=== PATIENT | male | born 1940 | race Caucasian/White ===

== ENCOUNTER → 2019-01-12 10:40 | Outpatient (CLI) | payer OTHER, SELFPAY ==
--- NOTE | 2019-01-12 11:12 | DI.CT.S_ITS ---
PROCEDURE: CT ABDOMEN W CON INDICATIONS: UNSPECIFIED ABD PAIN. The patient describes gastroesophageal reflux disease. TECHNIQUE: After the administration of oral and intravenous contrast, 5 mm thick sections acquired from the diaphragms to the iliac crests. 5 mm thick coronal and sagittal reformats were acquired. For radiation dose reduction, the following was used: automated exposure control, adjustment of mA and/or kV according to patient size. COMPARISON: [facility], US, ABDOMEN COMPLETE, 12/15/2014, 8:56. [facility], CR, ABDOMEN ACUTE SERIES, 12/14/2014, 20:26. [facility], CT, ABDOMEN/PELVIS WITH CONTRAST, 10/06/2012, 21:04. [facility], CT, ABDOMEN/PELVIS WITH CONTRAST, 12/14/2014, 22:22. FINDINGS: Image quality: Excellent. Lung bases: Lung bases are clear. Heart size is normal. Solid organs: Liver is normal in size and enhancement. Gallbladder has been removed. Biliary system is non dilated. Pancreas enhances normally. Spleen is normal in size and enhancement. Calcified granulomas are seen within the spleen. No adrenal nodules. 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 No hydronephrosis can be seen. Prominence of the right renal pelvis is again seen, which is stable compared to 2014. Peritoneum and bowel: Contrast enhanced bowel loops appear normal in caliber. No free fluid or air. Nodes and vessels: No retroperitoneal or mesenteric adenopathy by size criteria. Aorta and inferior vena cava are normal in size. Bones: No suspicious bony lesions. No vertebral body compression fractures. Mild dextroconvex scoliotic curvature is seen. Degenerative changes are seen, which are most prominent involving the lower lumbar spine. Miscellaneous: No ventral hernias. IMPRESSION: No imaging explanation is found for this patient's presenting history of abdominal pain and gastroesophageal reflux disease. 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 Incidental note is made of: Prior granulomatous exposure. Cholecystectomy Lumbar spine degenerative change Dextroconvex scoliotic curvature Dictated by: Guevara Kaur M.D. on 01/12/2019 at 13:02 Approved by: Guevara Kaur M.D. on 01/12/2019 at 13:05
== END ==
PROVIDERS: PCP Internal Medicine; Visit Provider Internal Medicine
DX: R10.9 Unspecified abdominal pain (principal); K21.9 Gastro-esophageal reflux disease without esophagitis; Q63.1 Lobulated, fused and horseshoe kidney; Z90.49 Acquired absence of other specified parts of digestive tract
CPT/HCPCS: 74160; Q9967

== ENCOUNTER → 2019-03-04 09:14 | Outpatient (CLI) | payer OTHER, SELFPAY ==
--- NOTE | 2019-03-04 | DI.RAD.S_ITS ---
PROCEDURE: XR CHEST 2V INDICATIONS: Dysphonia TECHNIQUE: 2 views of the chest were acquired. COMPARISON: [facility], , CHEST 2 VIEW, 09/09/2012, 17:14. FINDINGS: Surgical changes and devices: None. Lungs and pleura: Lungs are clear. No pleural effusions or pneumothorax. Mediastinum: Mediastinal contours are normal. Heart size is normal. Bones and chest wall: No suspicious bony abnormalities. Soft tissues appear unremarkable. IMPRESSION: Normal for age, source of current dysphonia symptoms is not seen. Dictated by: Doug Blackwell M.D. on 03/04/2019 at 11:27 Approved by: Doug Blackwell M.D. on 03/04/2019 at 11:31
[2019-03-04 11:09] LABS: BUN Creatinine Ratio 34.3 (6-22); Blood Urea Nitrogen 24 mg/dL (9-20); Calcium 8.9 mg/dL (8.4-10.2); Carbon Dioxide 29 mmol/L (22-32); Chloride 103 mmol/L (98-107); Estimated Glomerular Filt Rate > 60.0 mL/min (>60); Glucose 98 mg/dL (80-110); Sodium 140 mmol/L (137-145)
[2019-03-04 11:17] LABS: HEMOLYSIS 52 (0-50)
[2019-03-04 11:18] LABS: Potassium 4.9 mmol/L (3.4-5.1)
== END ==
PROVIDERS: PCP Internal Medicine; Visit Provider Internal Medicine
DX: R49.0 Dysphonia (principal)
CPT/HCPCS: 36415; 71046; 80048

== ENCOUNTER → 2019-07-15 13:57 | Outpatient (CLI) | payer OTHER, SELFPAY ==
--- NOTE | 2019-07-15 | DI.CT.S_ITS ---
PROCEDURE: CT CHEST W CON INDICATIONS: GERD TECHNIQUE: After the administration of intravenous contrast, 5 mm thick sections acquired from the pulmonary apices to the posterior costophrenic angles. 1 mm axial lung, 5 mm thick coronal and sagittal reformats and 7 mm axial MIP were acquired. For radiation dose reduction, the following was used: automated exposure control, adjustment of mA and/or kV according to patient size. COMPARISON: Lung bases on CT abdomen 01/12/2019. FINDINGS: Image quality: Excellent. Lungs and pleura: No acute air space opacities. A few small calcified granuloma. No pleural effusions or pneumothorax. Central and peripheral airways are patent and normal in caliber. Mediastinum: Heart size is normal. No pericardial effusion. No mediastinal or hilar adenopathy by size criteria. Calcified left hilar nodes. Thoracic aorta and central pulmonary arteries are normal in size. No central pulmonary embolism. Esophagus is normal in caliber. No hiatal hernia. Bones and chest wall: No suspicious bony lesions. No vertebral body compression fractures. No axillary or supraclavicular adenopathy by size criteria. Right hypodense thyroid nodule measuring 0.9 cm. Abdomen: Visualized upper abdominal solid organs appear normal. Upper abdominal bowel loops are normal in caliber. Small calcified splenic granuloma. Gallbladder surgically absent. IMPRESSION: 1. No acute airspace opacity. 2. Findings of prior granulomatous process. 3. No hiatal hernia demonstrated. Dictated by: Joe Coffman M.D. on 07/15/2019 at 15:57 Approved by: Joe Coffman M.D. on 07/15/2019 at 16:04
--- NOTE | 2019-07-15 14:28 | DI.CT.S_ITS ---
PROCEDURE: CT SOFT TISSUE NECK W CON INDICATIONS: GERD TECHNIQUE: After the administration of intravenous contrast, 3.0 mm axial sections acquired from the sella to the aortic arch. Additional oblique axial 3.0 mm sections acquired through the pharynx. 3 mm thick coronal and sagittal reformats were generated. For radiation dose reduction, the following was used: automated exposure control. COMPARISON: None. FINDINGS: Image quality: Excellent. Lymph nodes: No enlarged lymph nodes seen throughout the neck. Vessels: Visualized vasculature appears patent. Neck spaces: The oropharynx, nasopharynx, and pharynx demonstrate no mucosal lesions. The vocal cords, false vocal cords, pyriform sinuses, epiglottis, vallecula, and tongue base all appear normal. Extramucosal spaces appear unremarkable. Glands: The parotid and submandibular glands appear normal. Thyroid gland contains low attenuation 1 cm right sided nodule which could be better assessed with dedicated ultrasound. Miscellaneous: Visualized brain and orbits appear normal. Lung apices appear clear. Superficial soft tissues appear normal. Bones: No suspicious bony lesions. Cervical spondylosis and straightening of the normal lordotic curvature. Multilevel degenerative endplate sclerosis and spurring. Diffuse facet arthropathy. Minimal right maxillary sinus disease IMPRESSION: No lymphadenopathy identified. Right thyroid nodule, indeterminate. Recommend further assessment with dedicated ultrasound if not already performed. Dictated by: Hi Carcamo M.D. on 07/15/2019 at 16:45 Approved by: Hi Carcamo M.D. on 07/15/2019 at 16:50
[2019-07-15 14:32] LABS: BUN Creatinine Ratio 25.7 (6-22); Blood Urea Nitrogen 18 mg/dL (9-20); Calcium 9.2 mg/dL (8.4-10.2); Carbon Dioxide 29 mmol/L (22-32); Chloride 103 mmol/L (98-107); Estimated Glomerular Filt Rate > 60.0 mL/min (>60); Glucose 110 mg/dL (80-110); HEMOLYSIS < 15 (0-50); Potassium 4.3 mmol/L (3.4-5.1); Sodium 140 mmol/L (137-145)
== END ==
PROVIDERS: PCP Internal Medicine; Visit Provider Internal Medicine
DX: K21.9 Gastro-esophageal reflux disease without esophagitis (principal); M47.812 Spondylosis without myelopathy or radiculopathy, cervical region; E04.1 Nontoxic single thyroid nodule; R49.0 Dysphonia
CPT/HCPCS: 36415; 70491; 71260; 80048; Q9967

== ENCOUNTER → 2019-07-31 11:18 | Outpatient (CLI) | payer OTHER, SELFPAY ==
[2019-07-31 12:11] LABS: Add Manual Diff / Slide Review NO; Basophils Absolute Auto 0 /uL (0-100); Basophils Percent Auto 0.5 % (0-2); Eosinophils Absolute Auto 200 /uL (0-450); Eosinophils Percent Auto 2.8 % (2-4); Hematocrit 42.7 % (41-53); Hemoglobin 14.5 g/dL (13.5-17.5); Lymphocytes Absolute Auto 1700 /uL (1100-4500); Lymphocytes Percent Auto 30.3 % (25-40); Mean Corpuscular HGB Conc 33.9 % (30-36); Mean Corpuscular Hemoglobin 32.5 PG (26-34); Mean Corpuscular Volume 95.9 fL (80-100); Monocytes Absolute Auto 800 /uL (0-900); Monocytes Percent Auto 13.5 % (3-14); Neutrophils Absolute Auto 3000 /uL (1500-7000); Neutrophils Percent Auto 52.9 % (50-75); Platelet Count 237 X10^3/uL (150-400); Red Blood Cell Count 4.45 X10^6/uL (4.5-5.9); Red Cell Distribution Width 12.6 % (11.6-14.8); White Blood Cell Count 5.7 X10^3/uL (4.5-11.0)
[2019-07-31 12:30] LABS: Alanine Aminotransferase 16 IU/L (<50); Albumin 4.3 g/dL (3.5-5.0); Albumin Globulin Ratio 1.4 (1.0-2.8); Alkaline Phosphatase 92 U/L (38-126); Aspartate Aminotransferase 23 IU/L (17-59); BUN Creatinine Ratio 18.8 (6-22); Bilirubin Total 0.6 mg/dL (0.2-1.3); Blood Urea Nitrogen 15 mg/dL (9-20); Calcium 9.4 mg/dL (8.4-10.2); Carbon Dioxide 30 mmol/L (22-32); Chloride 101 mmol/L (98-107); Estimated Glomerular Filt Rate > 60.0 mL/min (>60); Globulin 3.1 g/dL (1.7-4.1); Glucose 100 mg/dL (80-110); HEMOLYSIS < 15 (0-50); Lactate Dehydrogenase 355 U/L (313-618); Potassium 4.5 mmol/L (3.4-5.1); Sodium 140 mmol/L (137-145); Total Protein 7.4 g/dL (6.3-8.2)
[2019-07-31 13:09] LABS: Prostate Specific Antigen < 0.064 ng/mL (0.10-4.00)
[2019-08-03 12:29] LABS: Beta-2-Microglobulin 2.19 mg/L (< 2.52)
[2019-08-03 15:05] LABS: Free Kappa Light Chain 18.2 mg/L (3.3-19.4); Free Kappa/ Lambda Ratio 1.61 (0.26-1.65); Free Lambda 11.3 mg/L (5.7-26.3)
[2019-08-04 17:28] LABS: Abnormal Protein Band 1 0.9 g/dL (NONE DETECTED); Albumin 4.1 g/dL (3.8-4.8); Alpha 1 Globulin 0.2 g/dL (0.2-0.3); Alpha 2 Globulin 0.6 g/dL (0.5-0.9); Beta 1 Globulin 0.4 g/dL (0.4-0.6); Gamma Globulin 1.5 g/dL (0.8-1.7); Protein, Total 7.1 g/dL (6.1-8.1)
== END ==
PROVIDERS: PCP Internal Medicine; Visit Provider Nurse Practitioner Gerontology
DX: D47.2 Monoclonal gammopathy (principal)
CPT/HCPCS: 36415; 80053; 82232; 83615; 83883; 84153; 84155; 84165; 85025

== ENCOUNTER → 2019-08-04 09:45 | Outpatient (CLI) | payer OTHER, SELFPAY ==
--- NOTE | 2019-08-04 | DI.US.S_ITS ---
PROCEDURE: US THYROID INDICATIONS: RIGHT NODULE ON CT TECHNIQUE: Real-time scanning was performed of the thyroid gland, with image documentation. COMPARISON: [facility], CT, CT CHEST W CON, 07/15/2019, 14:33. FINDINGS: Right: Thyroid lobe measures 4.7 x 1.9 x 1.9 cm, and is diffusely heterogeneous in echotexture. Left: Thyroid lobe measures 3.3 x 1.5 x 1.3 cm, and is diffusely heterogeneous in echotexture. Isthmus: 3.7 mm thick. Nodule number: 1 Location: Right inferior Size: 1.7 x 1.6 x 1.6 cm. Composition: Solid Echogenicity: Hypoechoic Shape: wider than tall. Margins: Smooth Echogenic foci: None Total points: 4 ACR TI-RADS category: Moderately suspicious IMPRESSION: Diffusely heterogeneous thyroid and moderately suspicious 1.7 cm right thyroid nodule. Recommend sonographically directed fine needle aspiration for further evaluation. ACR TI-RADS definitions and recommendations: TI-RADS 1 (benign): 0 points. FNA not needed. TI-RADS 2 (not suspicious): 2 points. FNA not needed. TI-RADS 3 (mildly suspicious): 3 points. * FNA if 2.5 cm or larger, follow up if 1.5 cm or larger (at 1, 3, and 5 years). TI-RADS 4 (moderately suspicious): 4-6 points. * FNA if 1.5 cm or larger, follow up if 1 cm or larger (at 1, 2, 3, and 5 years). TI-RADS 5 (highly suspicious): 7 points or more. * FNA if 1 cm or larger, follow up if 0.5 cm or larger (every year for 5 years). Dictated by: Polo Son A Interpreted: Racheal Rojas MD on 08/04/2019 at 11:12 Approved by: Racheal Rojas MD, PhD on 08/04/2019 at 13:27
== END ==
PROVIDERS: PCP Internal Medicine; Visit Provider Internal Medicine
DX: E04.1 Nontoxic single thyroid nodule (principal)
CPT/HCPCS: 76536

== ENCOUNTER → 2019-08-23 15:00 | Oncology outpatient (ONC) | payer OTHER, SELFPAY ==
--- NOTE | 2018-05-14 09:38 | ONC.APRN.PN ---
Assessment and Plan (1) Monoclonal gammopathy of undetermined significance Current visit: No Status: Acute 05/14/18 09:40 he patient is a 78 year old Male who is being seen in the clinic 05/14/2018. 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 He also carries a diagnosis of prostate cancer in surveillance since 2012. Patient presents today for a six-month interval surveillance visit. No clinical signs or symptoms today of disease progression. Additionally, his blood work looks very good. PSA is undetectable. CBC, CMP completely unremarkable. M spike stable at 1.2. Light chain within normal limits. Patient asked today if he needs to continue visits in this office. I reviewed with him the labs we monitor and how we interpret them. I asked him to discuss further with his primary care provider Dr. Hernández. She is very capable of monitoring his blood work however will defer to her. Certainly, we are happy to see this patient in our clinic for ongoing surveillance. If pt desires RTC in 6 months time for provider visit CBC, CMP, free light chains, SPEP with paraprotein. 05/14/18 10:56 - Time Spent with Patient 25 mins PN -Subjective Interval history: The patient is a 78 year old Male who is being seen in the clinic 05/14/2018. 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 He also carries a diagnosis of prostate cancer in surveillance since 2012. Patient presents today for a six-month interval surveillance visit. He has no complaints or concerns whatsoever on exam today. Overall feeling quite well. No recent illnesses or infections. Activity tolerance remains excellent. Appetite is great, weight is stable. No issue with bladder or bowels. Past Medical History The patient's past medical history is significant for: 1) MGUS identified 01/18/2014. Serum protein electrophoresis identifying a paraprotein measuring 1.95 g/dL. This was an IgG kappa subtype. Free light chain all within normal limits with a ratio 1.09. Initial workup including bone marrow biopsy 02/05/2014 reporting a cellularity of 25%. CD138 staining in 5-10% of the marrow population. No evidence of fibrosis was seen. Cytogenetics were otherwise normal. FISH panel identifying a monosomy 13. Baseline laboratory data from December 2013 with a calcium of 9 hemoglobin 12.5 serum Avis is 0.8. Skeletal survey on 02/04/2014 without evidence of lytic lesions. MRI of the thoracic lumbar spine dated 02/10/2014 nonspecific bilateral low T1 intensity foci of iliac wing. Face and the above parameters patient's diagnosis consistent with an MGUS with a low intermediate risk category and a 20 year chance of developing myeloma 21%. 2) Prostate cancer status post prostatectomy Lupron therapy for 6 months followed by radiation therapy to the prostatic bed. Treatment completed in late 2012. 3) Hemorrhoids 4) Appendectomy 1963. Results - Imaging Additional studies: Procedures Cholecystectomy (12/15/14) Radical prostatectomy (09/21/12) Regional lymph node excision (09/21/12) Home Medications and Allergies Home Medications Medication Instructions Recorded Confirmed Type CA PANTOTHENATE/FOLIC ACID/VIT 1 tab PO QDAY #0 03/16/13 History (MULTIVITAMIN) Fish Oil (Fish Oil 500 MG Softgel) 500 mg PO QDAY #0 03/16/13 History VITAMIN D (Vitamin D3) 1,000 unit PO EVERY OTHER DAY #0 03/16/13 History L. acidophilus-L. rhamnosus 05/14/18 History [Probiotic] aspirin [Aspir-81] 81 mg PO DAILY 05/14/18 05/14/18 History calcium carbonate [Tums] 300 mg PO BID 05/14/18 05/14/18 History ferrous sulfate 325 mg PO DAILY 05/14/18 05/14/18 History folic acid 0.4 mg PO DAILY 05/14/18 05/14/18 History ranitidine HCl [Zantac] 150 mg PO DAILY 05/14/18 05/14/18 History Allergies Allergy/AdvReac Type Severity Reaction Status Date / Time No Known Allergies Allergy Uncoded 12/31/17 12:02
[2018-05-14 10:24] VITALS: BP 138/63; PULSE 63; RESP 18; TEMP 36.4; O2SAT 95
--- NOTE | 2018-11-10 09:36 | ONC.APRN.PN ---
PN -Subjective Interval history: The patient is a 78 year old Male who is being seen in the clinic 11/10/2018. 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 He also carries a diagnosis of prostate cancer in surveillance since 2012. Patient presents today for a six-month interval surveillance visit. He has no complaints or concerns whatsoever on exam today. Overall feeling quite well. No recent illnesses or infections. Activity tolerance remains excellent. Appetite is great, weight is stable. No issue with bladder or bowels. No recent illnesses or hospitalizations. No cough. No new pain, no new lumps or bumps. Past Medical History The patient's past medical history is significant for: 1) MGUS identified 01/18/2014. Serum protein electrophoresis identifying a paraprotein measuring 1.95 g/dL. This was an IgG kappa subtype. Free light chain all within normal limits with a ratio 1.09. Initial workup including bone marrow biopsy 02/05/2014 reporting a cellularity of 25%. CD138 staining in 5-10% of the marrow population. No evidence of fibrosis was seen. Cytogenetics were otherwise normal. FISH panel identifying a monosomy 13. Baseline laboratory data from December 2013 with a calcium of 9 hemoglobin 12.5 serum Avis is 0.8. Skeletal survey on 02/04/2014 without evidence of lytic lesions. MRI of the thoracic lumbar spine dated 02/10/2014 nonspecific bilateral low T1 intensity foci of iliac wing. Face and the above parameters patient's diagnosis consistent with an MGUS with a low intermediate risk category and a 20 year chance of developing myeloma 21%. 2) Prostate cancer status post prostatectomy Lupron therapy for 6 months followed by radiation therapy to the prostatic bed. Treatment completed in late 2012. 3) Hemorrhoids 4) Appendectomy 1963. Home Medications and Allergies Home Medications Medication Instructions Recorded Confirmed Type CA PANTOTHENATE/FOLIC ACID/VIT 1 tab PO QDAY #0 03/16/13 History (MULTIVITAMIN) Fish Oil (Fish Oil 500 MG Softgel) 500 mg PO QDAY #0 03/16/13 History VITAMIN D (Vitamin D3) 1,000 unit PO EVERY OTHER DAY #0 03/16/13 History L. acidophilus-L. rhamnosus 05/14/18 History [Probiotic] aspirin [Aspir-81] 81 mg PO DAILY 05/14/18 05/14/18 History calcium carbonate [Tums] 300 mg PO BID 05/14/18 05/14/18 History ferrous sulfate 325 mg PO DAILY 05/14/18 05/14/18 History folic acid 0.4 mg PO DAILY 05/14/18 05/14/18 History ranitidine HCl [Zantac] 150 mg PO DAILY 05/14/18 05/14/18 History esomeprazole magnesium [Nexium] BID 11/10/18 History Allergies Allergy/AdvReac Type Severity Reaction Status Date / Time No Known Allergies Allergy Uncoded 12/31/17 12:02 Exam - Constitutional positive no acute distress - Routine HEENT Exam Eye: Present: conjunctivae pink. Absent: conjunctival icterus, scleral injection ENT: Present: mucous membranes moist, oropharynx clear - Routine Neck Exam Present: supple. Absent: lymphadenopathy - Routine Respiratory Exam Present: Clear to auscultation bilaterally. Absent: rales, rhonchi, wheezes - Routine Cardiovascular Exam Present: RRR, S1, S2. Absent: murmur, gallop, rubs, JVD - Routine Abdominal Exam Present: soft, normoactive bowel sounds. Absent: tenderness, distended, organomegaly Palpation/Percussion: Absent: fluid waves - Routine Extremities Exam Absent: edema, calf tenderness - Routine Skin Exam Present: intact, normal turgor. Absent: petechiae, rash - Routine Neurological Exam Present: alert, oriented X3 - Routine Psychiatric Exam Present: normal affect Results - Imaging Additional studies: Procedures Cholecystectomy (12/15/14) Radical prostatectomy (09/21/12) Regional lymph node excision (09/21/12) Assessment and Plan (1) Monoclonal gammopathy of undetermined significance Current visit: No Status: Acute The patient is a 78-year-old male who carries a diagnosis of low intermediate risk mother us. He also carries a diagnosis of prostate cancer in surveillance since 2012. Reassuringly on exam today no clinical signs or symptoms to suggest disease progression of mother us or disease recurrence of prostate cancer. PSA remains undetectable at less than 0.1. Hemoglobin 13.6 hematocrit 40.4. Calcium 9.2. Creatinine 0.88 BUN 15 GFR greater than 60. These labs are also quite reassuring. I will have the patient return to clinic in 6 months time I would like for him to establish with 1 of our new oncologist. We will also repeat CBC CMP PSA SPEP with paraprotein, free light chains.
[2018-11-10 13:56] VITALS: BP 142/67; PULSE 66; RESP 18; TEMP 36.2; O2SAT 96
--- NOTE | 2019-08-02 11:49 | ONC.SCHED ---
Pt. moved from 08/05 to 08/[address] Russ's schedule was too full and another pt. needed to be seen.
[2019-08-23 15:53] VITALS: BP 131/66; PULSE 72; RESP 16; TEMP 36.4; O2SAT 95
--- NOTE | 2019-08-23 15:59 | ONC.PN ---
PN -Subjective Interval history: ID/CC: The patient is a 78 year old Male who is being seen in the clinic 11/10/2018. 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 He also carries a diagnosis of prostate cancer in surveillance since 2012. Interim Events: No new symptoms. He has some aches in his back. He is now being evaluated for thyroid nodule and will be seen by endocrinolosit. Good energy, and good appetite. A bit constipation. Lately he has been taking alvin oil, and that takes care of it. he is also taking Miralax. Past Medical History The patient's past medical history is significant for: 1) MGUS identified 01/18/2014. Serum protein electrophoresis identifying a paraprotein measuring 1.95 g/dL. This was an IgG kappa subtype. Free light chain all within normal limits with a ratio 1.09. Initial workup including bone marrow biopsy 02/05/2014 reporting a cellularity of 25%. CD138 staining in 5-10% of the marrow population. No evidence of fibrosis was seen. Cytogenetics were otherwise normal. FISH panel identifying a monosomy 13. Baseline laboratory data from December 2013 with a calcium of 9 hemoglobin 12.5 serum Avis is 0.8. Skeletal survey on 02/04/2014 without evidence of lytic lesions. MRI of the thoracic lumbar spine dated 02/10/2014 nonspecific bilateral low T1 intensity foci of iliac wing. Face and the above parameters patient's diagnosis consistent with an MGUS with a low intermediate risk category and a 20 year chance of developing myeloma 21%. 2) Prostate cancer status post prostatectomy Lupron therapy for 6 months followed by radiation therapy to the prostatic bed. Treatment completed in late 2012. 3) Hemorrhoids 4) Appendectomy 1963. - Patient Self-Reported Symptoms SR Gastrointestinal issues: Constipation SR Musculoskeletal issues: Muscle weakness, Muscle pain or cramps - Additional ROS All systems PM: reviewed and no additional remarkable complaints except as stated Home Medications and Allergies Home Medications Medication Instructions Recorded Confirmed Type CA PANTOTHENATE/FOLIC ACID/VIT 1 tab PO QDAY #0 03/16/13 History (MULTIVITAMIN) Fish Oil (Fish Oil 500 MG Softgel) 500 mg PO QDAY #0 03/16/13 History VITAMIN D (Vitamin D3) 1,000 unit PO EVERY OTHER DAY #0 03/16/13 History L. acidophilus-L. rhamnosus 05/14/18 History [Probiotic] aspirin [Aspir-81] 81 mg PO DAILY 05/14/18 05/14/18 History calcium carbonate [Tums] 300 mg PO BID 05/14/18 05/14/18 History ferrous sulfate 325 mg PO DAILY 05/14/18 05/14/18 History folic acid 0.4 mg PO DAILY 05/14/18 05/14/18 History ranitidine HCl [Zantac] 150 mg PO DAILY 05/14/18 05/14/18 History esomeprazole magnesium [Nexium] BID 11/10/18 History Allergies Allergy/AdvReac Type Severity Reaction Status Date / Time No Known Allergies Allergy Uncoded 12/31/17 12:02 Exam Vital signs: Vital Signs Temp Pulse Resp BP Pulse Ox 08/23/19 15:53 97.6 F 72 16 131/66 95 Intake and Output 08/22/19 08/23/19 08/23/19 23:59 07:59 15:59 Other: Weight 83 kg Patient Weight 08/23/19 23:59 Weight 83 kg - Constitutional positive no acute distress, positive cooperative - Routine HEENT Exam Head: Present: normocephalic, atraumatic Eye: Present: EOMI, PERRL, normal accommodation. Absent: conjunctival icterus ENT: Present: mucous membranes moist - Routine Neck Exam Absent: lymphadenopathy, thyromegaly - Routine Chest/Breast/Axilla Exam Axillae: Absent: lymphadenopathy - Routine Respiratory Exam Present: Clear to auscultation bilaterally. Absent: wheezes - Routine Cardiovascular Exam Present: RRR, S1, S2. Absent: murmur, gallop - Routine Abdominal Exam Present: soft. Absent: tenderness - Routine Extremities Exam Absent: edema - Routine Neurological Exam Present: alert, oriented X3, CN II-XII intact. Absent: sensory deficit, motor deficit - Routine Psychiatric Exam Present: normal affect Results - Imaging Additional studies: Procedures Cholecystectomy (12/15/14) Radical prostatectomy (09/21/12) Regional lymph node excision (09/21/12) Assessment and Plan (1) Monoclonal gammopathy of undetermined significance The patient is a 79 year-old male who carries a diagnosis of low intermediate risk MGUS. He also carries a diagnosis of prostate cancer in surveillance since 2012. Patient and patient's were asking if it is possible for [facility] to follow-up with Dr. Marcial Hubbard. I talked with them that I think it makes sense to see one Hematology on and oncologist. Currently patient is being followed by Dr. Marcial Hubbard for prostate cancer and we are following for MGUS. Clinically I explained to the patient that his prostate cancer has remained stable with undetectable PSA level. The MGUS also has remained stable. The M spike is about 0.9 g. No clinical worrisome signs or symptoms. Patient lives on [facility]. Follow-up with Dr. Nicole Hubbard would be much more convenient. Plan: Patient will follow up with Dr. Marcial Hubbard
== END ==
PROVIDERS: Family Provider Internal Medicine; PCP Internal Medicine; Visit Provider Internal Medicine Hematology & Oncology
DX: D47.2 Monoclonal gammopathy (principal); Z85.46 Personal history of malignant neoplasm of prostate
CPT/HCPCS: 99214

== ENCOUNTER → 2019-09-14 10:54 | Outpatient (CLI) | payer OTHER, SELFPAY | PROVIDERS: PCP Internal Medicine; Visit Provider Internal Medicine | DX: K14.9 Disease of tongue, unspecified (principal); Z53.20 Procedure and treatment not carried out because of patient's decision for unspecified reasons ==

== ENCOUNTER → 2020-10-26 10:42 | Outpatient (CLI) | payer OTHER, SELFPAY ==
--- NOTE | 2020-10-26 | DI.US.S_ITS ---
PROCEDURE: US THYROID INDICATIONS: Hypothyroidism, unspecified TECHNIQUE: Real-time scanning was performed of the thyroid gland, with image documentation. COMPARISON: [facility], [place], US THYROID, 08/04/2019, 10:04. FINDINGS: Right: Thyroid lobe measures 4.9 x 1.8 x 2.0 cm, and is homogeneous in echotexture. Left: Thyroid lobe measures 3.5 x 1.2 x 1.5 cm, and is homogenous in echotexture. Isthmus: 3.7 mm thick. Nodule number: 1 Location: Right inferior Size: Stable at 1.7 x 1.7 x 1.6 cm. Composition: Solid Echogenicity: Isoechoic Shape: wider than tall. Margins: Smooth Echogenic foci: None Total points: 3 ACR TI-RADS category: Mildly suspicious IMPRESSION: Stable mildly suspicious right thyroid nodule. Recommend continued followup ultrasound as detailed below. ACR TI-RADS definitions and recommendations: TI-RADS 1 (benign): 0 points. FNA not needed. TI-RADS 2 (not suspicious): 2 points. FNA not needed. TI-RADS 3 (mildly suspicious): 3 points. * FNA if 2.5 cm or larger, follow up if 1.5 cm or larger (at 1, 3, and 5 years). TI-RADS 4 (moderately suspicious): 4-6 points. * FNA if 1.5 cm or larger, follow up if 1 cm or larger (at 1, 2, 3, and 5 years). TI-RADS 5 (highly suspicious): 7 points or more. * FNA if 1 cm or larger, follow up if 0.5 cm or larger (every year for 5 years). Dictated by: Polo Son [facility] Interpreted: Joe Coffman MD on 10/26/2020 at 12:41 Approved by: Joe Coffman M.D. on 10/26/2020 at 14:23
== END ==
PROVIDERS: PCP Internal Medicine; Referring Provider Internal Medicine Endocrinology, Diabetes & Metabolism; Visit Provider Internal Medicine Endocrinology, Diabetes & Metabolism
DX: E03.9 Hypothyroidism, unspecified (principal); E04.1 Nontoxic single thyroid nodule
CPT/HCPCS: 76536

== ENCOUNTER → 2021-04-06 06:38 | Outpatient (CLI) | payer OTHER, SELFPAY ==
--- NOTE | 2021-04-06 | DI.MRI.S_ITS ---
PROCEDURE: MR HEAD/BRAIN WO/W CON INDICATIONS: Other amnesia TECHNIQUE: Noncontrast axial T1 spin echo, axial T2 fast spin echo, sagittal and axial FLAIR, coronal T2 fast spin echo, axial gradient echo, axial diffusion and ADC through the brain. After the administration of contrast, axial and coronal 3D VIBE or T1 spin echo with fat saturation through the brain. COMPARISON: None. FINDINGS: Although not entirely definitive, these images demonstrate what appears to be gyriform thickening of the right superior frontal gyrus near the vertex (for example series 7 images 19-22, series 6, images 19-22, and series 5, image 12). This could simply represent sparing of global cerebral volume loss as it pertains to this gyrus, although there is a significant observable difference in the gyral thickness when compared with the remaining gyri and the findings are suspicious for an underlying low-grade neoplasm. There is no associated enhancement. There is some subtle questionable increased FLAIR signal in this gyrus. There is advanced global cerebral volume loss and chronic microvascular ischemic change. No abnormal intracranial enhancement. No findings of mass effect or midline shift. The ventricular system and basilar cisterns are patent. No restricted diffusion to indicate recent ischemia. The major intracranial vascular flow-related signal voids are maintained. No gross orbital abnormality. Paranasal sinuses and mastoid air cells are predominantly clear. IMPRESSION: Questionable thickening of the right superior frontal gyrus near the vertex. 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 Follow-up contrast-enhanced MRI of the brain is recommended in 2 months to further assess. Global cerebral volume loss and advanced chronic microvascular ischemic changes. Dictated by: Arie Mckeon M.D. on 04/06/2021 at 10:49 Approved by: Arie Mckeon M.D. on 04/06/2021 at 10:52
== END ==
PROVIDERS: PCP Internal Medicine; Referring Provider Internal Medicine; Visit Provider Internal Medicine
DX: R41.3 Other amnesia (principal)
CPT/HCPCS: 70553

== ENCOUNTER → 2023-10-03 11:26 | Outpatient (CLI) | payer OTHER, SELFPAY ==
[2023-10-03 12:12] LABS: BUN Creatinine Ratio 20.3 (6-22); Blood Urea Nitrogen 15 mg/dL (9-20); Calcium 9.6 mg/dL (8.4-10.2); Carbon Dioxide 31 mmol/L (22-32); Chloride 101 mmol/L (98-107); Estimated Glomerular Filt Rate > 60 mL/min (>60); Glucose 78 mg/dL (80-110); HEMOLYSIS < 15 (0-50); Sodium 139 mmol/L (137-145)
== END ==
PROVIDERS: PCP Internal Medicine; Referring Provider Surgery; Visit Provider Surgery
DX: R19.4 Change in bowel habit (principal)
CPT/HCPCS: 36415; 80048; 99213

== ENCOUNTER → 2023-10-12 11:26 | Outpatient (CLI) | payer OTHER, SELFPAY ==
--- NOTE | 2023-10-12 11:27 | DI.CT.S_ITS ---
PROCEDURE: CT ABDOMEN PELVIS W CON INDICATIONS: change in bowel function, unable to do colonoscopy TECHNIQUE: After the administration of intravenous contrast, axial sections acquired from the lung bases to the pubic symphysis. Coronal and sagittal reformats were performed. For radiation dose reduction, the following was used: automated exposure control, adjustment of mA and/or kV according to patient size. COMPARISON: [facility], CT, ABDOMEN/PELVIS WITH CONTRAST, 12/14/2014, 22:22. FINDINGS: Image quality: Diagnostic. Lower Chest: No significant findings. ABDOMEN: Liver: No solid mass. Gallbladder: Cholecystectomy. Biliary ducts: No biliary dilation. Pancreas: No ductal dilation. 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 Spleen: Size is within normal limits. A few subcentimeter calcified granulomas in the spleen, likely sequela of prior granulomatous infection. Adrenal Glands: No adrenal nodules. Kidneys and Ureters: Horseshoe kidney, anatomic variant. No hydronephrosis. No solid mass. No complex renal cystic lesion which requires follow up. Stomach and Bowel: No hiatal hernia. Stomach appears grossly normal. Small and large bowel is normal in caliber, without obstruction. Slightly above average colonic stool burden. Evaluation for an endoluminal mass is limited. Appendix is not visualized; however, no secondary signs of acute appendicitis. No pneumatosis, pneumoperitoneum or portal venous gas. Peritoneum: No abnormal intraperitoneal fluid. Ventral Wall: No hernia. Abdominal Nodes: No retroperitoneal or mesenteric adenopathy by size criteria. Vessels: Aorta and inferior vena cava are normal in size. Mild calcification of the abdominal aorta, without aneurysm. Patent portal, splenic and bilateral renal veins. PELVIS: Pelvic Organs: Unremarkable. Bladder: Decompressed, limiting evaluation. Pelvic Nodes: No enlarged lymph nodes. Miscellaneous: Small bilateral fat containing inguinal hernias. Bones: No aggressive osseous abnormality. No acute fractures. Moderate multilevel degenerative changes of the spine. IMPRESSION: 1. Nonobstructive bowel. Slightly above average colonic stool burden. Evaluation for an endoluminal mass is limited. A CT enterography study can be performed for further evaluation, at clinical discretion. 2. Cholecystectomy. No biliary ductal dilatation. 3. Appendix is not well seen; however, no secondary signs of acute appendicitis. 4. No suspicious lymphadenopathy. Dictated by: Albert Banks M.D. on 10/12/2023 at 21:39 Approved by: Albert Banks M.D. on 10/12/2023 at 21:45
== END ==
LOC: CT 11:27
PROVIDERS: PCP Internal Medicine; Referring Provider Surgery; Visit Provider Surgery
DX: R19.4 Change in bowel habit (principal); Z90.49 Acquired absence of other specified parts of digestive tract
CPT/HCPCS: 74177; Q9967

== ENCOUNTER 2024-09-23 10:59 | Emergency (ER) | payer OTHER, SELFPAY ==
[2024-09-23 11:00] VITALS: BP 149/69; PULSE 68; RESP 14; TEMP 36.6; O2SAT 97; BMI 22.3
--- NOTE | 2024-09-23 11:04 | EKG_ITS ---
[place] [id number] [place] [id number] Test Date: 2024-09-23 Pat Name: Aldo Chakraborty Department: Room: Gender: Male Mail Room Clerk: MARV : 1940 Requested By: Order Number: [id number] Reading MD: Tyrone Luke Measurements Intervals [place] Rate: 63 P: 13 ID: [id number] QRS: 14 QRSD: 86 T: 40 QT: 414 QTc: 423 Interpretive Statements Normal sinus rhythm Anterior infarct , age undetermined Electronically Signed On 09-23-2024 18:37:10 PST by Tyrone Luke
--- NOTE | 2024-09-23 11:04 | DI.RAD.S_ITS ---
PROCEDURE: XR CHEST 1V INDICATIONS: chest pain TECHNIQUE: One view of the chest was acquired. COMPARISON: [facility], CR, XR CHEST 2V, 03/04/2019, 9:29. FINDINGS: Surgical changes and devices: None. Lungs and pleura: Lungs are clear. No pleural effusions or pneumothorax. Mediastinum: Mediastinal contours appear normal. Heart size is normal. Bones and chest wall: No suspicious bony lesions. Overlying soft tissues appear unremarkable. IMPRESSION: No acute cardiopulmonary abnormality is seen. Dictated by: Racheal Rojas MD, PhD on 09/23/2024 at 11:36 Approved by: Racheal Rojas MD, PhD on 09/23/2024 at 11:37
[2024-09-23 11:24] LABS: Add Manual Diff / Slide Review NO; Basophils Absolute Auto 0 /uL (0-100); Basophils Percent Auto 0.4 % (0-2); Eosinophils Absolute Auto 0 /uL (0-450); Eosinophils Percent Auto 0.1 % (2-4); Hemoglobin 14.1 g/dL (13.5-17.5); Lymphocytes Absolute Auto 1200 /uL (1100-4500); Lymphocytes Percent Auto 12.8 % (25-40); Mean Corpuscular HGB Conc 33.7 % (30-36); Mean Corpuscular Hemoglobin 31.9 PG (26-34); Mean Corpuscular Volume 94.8 fL (80-100); Monocytes Absolute Auto 500 /uL (0-900); Monocytes Percent Auto 5.6 % (3-14); Neutrophils Absolute Auto 7800 /uL (1500-7000); Neutrophils Percent Auto 81.1 % (50-75); Platelet Count 256 X10^3/uL (150-400); Red Blood Cell Count 4.42 X10^6/uL (4.5-5.9); Red Cell Distribution Width 12.5 % (11.6-14.8); White Blood Cell Count 9.6 X10^3/uL (4.5-11.0)
[2024-09-23 11:32] LABS: Prothrombin Time 11.1 SECONDS (9.4-12.5)
[2024-09-23 11:34] LABS: PTT Partial Thromboplastin Tim 31 SECONDS (25.1-36.5)
[2024-09-23 11:38] VITALS: PULSE 55; RESP 12; O2SAT 94
[2024-09-23 11:39] LABS: Alanine Aminotransferase 27 IU/L (<50); Albumin 4.3 g/dL (3.5-5.0); Albumin Globulin Ratio 1.2 (1.0-2.8); Alkaline Phosphatase 102 U/L (38-126); Aspartate Aminotransferase 33 IU/L (17-59); BUN Creatinine Ratio 17.1 (6-22); Bilirubin Total 0.5 mg/dL (0.2-1.3); Blood Urea Nitrogen 12 mg/dL (9-20); Calcium 8.9 mg/dL (8.4-10.2); Carbon Dioxide 24 mmol/L (22-32); Chloride 105 mmol/L (98-107); Creatine Kinase 131 U/L (55-170); Estimated Glomerular Filt Rate > 60 mL/min (>60); Globulin 3.5 g/dL (1.7-4.1); Glucose 148 mg/dL (80-110); HEMOLYSIS < 15 (0-50); Lipase 115 U/L (23-300); Potassium 3.8 mmol/L (3.4-5.1); Sodium 138 mmol/L (137-145); Total Protein 7.8 g/dL (6.3-8.2)
--- NOTE | 2024-09-23 11:50 | ED.GENADULT ---
HPI - General Adult General Chief complaint: Dizziness Stated complaint: Sent from [facility] Coughing N/V Tired Time Seen by Provider: 09/23/24 11:16 Source: patient Mode of arrival: Ambulatory History of Present Illness HPI narrative: Patient is an 84-year-old male who is here for evaluation of a couple weeks of a cough. Some sinus congestion. No sore throat. No chest pain. Nonproductive cough. No abdominal pain. No nausea or vomiting. Patient's recently was diagnosed with a ?viral infection? that ?turned into bacterial? and she was started on antibiotics earlier this week. Patient went to the walk-in clinic and was told that it was going to be a several hour wait so he decided to come to the emergency department. Related Data Home Medications Medication Instructions Recorded Confirmed esomeprazole magnesium 20 mg BID 11/10/18 10/03/23 capsule,delayed release (Nexium) ascorbic acid (vitamin C) 1,000 mg 1 g PO DAILY 10/03/23 10/03/23 tablet folic acid 400 mcg tablet 0.4 mg PO DAILY 10/03/23 10/03/23 [id number] tab PO 10/03/23 10/03/23 375 mg-150 mg-125 mg tablet mecobalamin (vitamin B12) 1,000 1,000 mcg PO DAILY 10/03/23 10/03/23 mcg chewable tablet memantine 10 mg tablet 10 mg PO QPM 10/03/23 10/03/23 multivit with cj-XV-gnubnhdx-omega cap PO 10/03/23 10/03/23 3,6,9 no.3 400 mcg-300 mcg capsule polyethylene glycol 3350 17 17 g PO DAILY PRN 10/03/23 10/03/23 gram/dose oral powder (LaxaClear) rosuvastatin 5 mg tablet 5 mg PO DAILY 10/03/23 10/03/23 sennosides [Senna Lax] PO BID 10/03/23 10/03/23 vitamin B complex 1 tab PO DAILY 10/03/23 10/03/23 zinc acetate 50 mg (zinc) capsule 50 mg PO DAILY 10/03/23 10/03/23 (Galzin) Previous Rx's Medication Instructions Recorded azithromycin 250 mg tablet See Rx Instructions PO .COMPLEX #6 09/23/24 tabs benzonatate 100 mg capsule 100 mg PO Q6H PRN cough #20 caps 09/23/24 Allergies Allergy/AdvReac Type Severity Reaction Status Date / Time No Known Drug Allergies Allergy Verified 09/23/24 11:04 Review of Systems Review of Systems ROS Unobtainable: All systems reviewed & are unremarkable except as noted in HPI and below Patient History Medical History Weakness of back GERD (gastroesophageal reflux disease) 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 Surgical History H/O prostatectomy History of appendectomy Social History marital status: lives independently: Yes education level: master's degree occupational status: previously employed Smoking Status: Never smoker alcohol intake: current substance use type: does not use Smoking Status: Never smoker Exam Initial Vital Signs Initial Vital Signs: Vital Signs Temperature 97.8 F 09/23/24 11:00 Pulse Rate 68 09/23/24 11:00 Respiratory Rate 14 09/23/24 11:00 Blood Pressure 149/69 H 09/23/24 11:00 Pulse Oximetry 97 09/23/24 11:00 Oxygen Delivery Method Room Air 09/23/24 11:00 Const General: cooperative, comfortable and No ill appearing HENMT Head: normal to inspection and normocephalic Resp Effort & Inspection: normal respiratory effort Auscultation: clear to auscultation bilaterally Cardio Rate: regular rate Rhythm: regular rhythm GI Inspection: normal to inspection and non-distended Skin General: no rashes or lesions noted Neuro General: patient alert and patient awake Extrem General: normal to inspection Course Orders Ordered: ED Orders 09/23/24 11:04 XR chest 1V Stat EKG-12 Lead Stat 09/23/24 11:11 Complete Blood Count AUTO DIFF Stat Comprehensive Metabolic Panel Stat Lipase Stat Magnesium Stat NT-proBNP (BNP-Adult 18+) Stat PTT Partial Thromboplastin Chace Stat Prothrombin Time INR Stat Troponin & CK Cardiac Panel Stat 09/23/24 12:03 Covid-19 + FLU A/B + RSV - PCR Stat Vital Signs Vital signs: Vital Signs - 8 hr 09/23/24 11:00 09/23/24 11:38 09/23/24 12:00 Temperature 97.8 F Pulse Rate 68 55 L Respiratory Rate 14 12 Blood Pressure 149/69 H 131/59 L Pulse Oximetry 97 94 Oxygen Delivery Method Room Air 09/23/24 12:00 09/23/24 12:30 09/23/24 12:30 Temperature Pulse Rate 58 L 56 L Respiratory Rate 15 12 Blood Pressure 132/60 Pulse Oximetry 94 94 Oxygen Delivery Method Room Air Medical Decision Making Lab Data Lab results reviewed: Yes I reviewed the patient's lab results. 09/23/24 11:11 09/23/24 11:11 Labs: Lab Results 09/23/24 09/23/24 Range/Units 11:11 12:03 WBC 9.6 (4.5-11.0) X10^3/uL RBC 4.42 L (4.5-5.9) X10^6/uL Hgb 14.1 (13.5-17.5) g/dL Hct 42.0 (41-53) % MCV 94.8 (80-100) fL MCH 31.9 (26-34) PG MCHC 33.7 (30-36) % RDW 12.5 (11.6-14.8) % Plt Count 256 (150-400) X10^3/uL Neut % (Auto) 81.1 H (50-75) % Lymph % (Auto) 12.8 L (25-40) % [place] % (Auto) 5.6 (3-14) % Eos % (Auto) 0.1 L (2-4) % Baso % (Auto) 0.4 (0-2) % Neut # (Auto) 7800 H (6547-0897) /uL Lymph # (Auto) 1200 (4234-2371) /uL [place] # (Auto) 500 (0-900) /uL Eos # (Auto) 0 (0-450) /uL Baso # (Auto) 0 (0-100) /uL PT 11.1 (9.4-12.5) SECONDS INR 1.0 (0.9-1.3) APTT 31 (25.1-36.5) SECONDS Sodium 138 (137-145) mmol/L Potassium 3.8 (3.4-5.1) mmol/L Chloride 105 (98-107) mmol/L Carbon Dioxide 24 (22-32) mmol/L BUN 12 (9-20) mg/dL Creatinine 0.70 (0.66-1.25) mg/dL Estimated GFR > 60 (>60) mL/min BUN/Creatinine Ratio 17.1 (6-22) Glucose 148 H (80-110) mg/dL Calcium 8.9 (8.4-10.2) mg/dL Magnesium 2.0 (1.6-2.3) mg/dL Total Bilirubin 0.5 (0.2-1.3) mg/dL AST 33 (17-59) IU/L ALT 27 (<50) IU/L Alkaline Phosphatase 102 (38-126) U/L Total Creatine Kinase 131 (55-170) U/L Troponin I < 0.012 (0.01-0.034) ng/mL NT-Pro-B Natriuret Pep 446 (<450) pg/mL Total Protein 7.8 (6.3-8.2) g/dL Albumin 4.3 (3.5-5.0) g/dL Globulin 3.5 (1.7-4.1) g/dL Albumin/Globulin Ratio 1.2 (1.0-2.8) Lipase 115 (23-300) U/L SARS-CoV-2 (PCR) Negative (Negative) Influenza A (RT-PCR) Flu a negative (NEGATIVE) Influenza B (RT-PCR) Flu b negative (NEGATIVE) RSV (PCR) Negative (Negative) Imaging Data Chest x-ray: Radiologist's Impression: PROCEDURE: XR CHEST 1V INDICATIONS: chest pain TECHNIQUE: One view of the chest was acquired. COMPARISON: [facility], , XR CHEST 2V, 03/04/2019, 9:29. FINDINGS: Surgical changes and devices: None. Lungs and pleura: Lungs are clear. No pleural effusions or pneumothorax. Mediastinum: Mediastinal contours appear normal. Heart size is normal. Bones and chest wall: No suspicious bony lesions. Overlying soft tissues appear unremarkable. IMPRESSION: No acute cardiopulmonary abnormality is seen. ECG Data Attestation: I personally reviewed and interpreted this ECG as follows: Interpretation: Sinus rhythm Ventricular rate is 63 Normal axis normal QRS Normal QTC No ST T wave changes MDM Narrative Medical decision making narrative: COVID/flu/RSV are negative however this does not obviously check for all viral illnesses. Chest x-ray shows no signs of pneumonia. He was had a cough that has been worsening over the past 2 weeks. His at home is undergoing chemotherapy which is why she was started on antibiotics. Patient was not in heart failure. Low suspicion for ACS. I do suspect that this is a bronchitis/viral illness however he was had symptoms for 2 weeks. The plan will be to try to treat his cough with Grzegorz Clarke. He was also given a printed prescription for antibiotics and was instructed that if over the next 5-7 days if his symptoms worsen or are not improving he should take the antibiotics and we would treat this as an atypical pneumonia. There was no indication for admission to the hospital today. He was given return precautions. He expressed understanding and agreement. Discharge Plan Departure Patient Disposition: Home Clinical Impression: Cough Instructions: Cough (Alternative Therapy), Cough Activity Restrictions/Additional Instructions: Continue to take all of your medications as directed. Use the cough medicine as needed and as directed. If your symptoms are not better within the next 5-7 days or worsening please fill the prescription for the antibiotics and start taking as directed. Contact your primary doctor for follow-up. Return to the emergency department for new or worsening symptoms. Prescriptions: New benzonatate 100 mg capsule 100 mg PO Q6H PRN (Reason: cough) Qty: 20 0RF azithromycin 250 mg tablet See Rx Instructions .ROUTE .COMPLEX Qty: 6 0RF Rx Instructions: For 250 mg dose pack: take 500 mg today (day 1), then 250 mg for 4 days (days 2-5) No Action mecobalamin (vitamin B12) 1,000 mcg tablet,chewable 1,000 mcg PO DAILY vitamin B complex Tablet 1 tab PO DAILY rosuvastatin 5 mg tablet 5 mg PO DAILY ascorbic acid (vitamin C) 1,000 mg tablet 1 g PO DAILY [id number] 375-150-125 mg tablet PO Galzin 50 mg (zinc) capsule 50 mg PO DAILY folic acid 400 mcg tablet 0.4 mg PO DAILY nl-fs-QQ-lycop-omega 3,6,9 #3 400-300 mcg capsule PO memantine 10 mg tablet 10 mg PO QPM sennosides [Senna Lax] PO BID polyethylene glycol 3350 [LaxaClear] 17 gram/dose powder 17 g PO DAILY PRN esomeprazole magnesium [Nexium] 20 mg Capsule,Delayed Release(Dr/Ec) BID Referrals: Steffany Hernández MD [Primary Care Provider] - Stand Alone Forms: Patient Portal/API/Survey
[2024-09-23 11:51] LABS: NT-proBNP (BNP-Adult 18+) 446 pg/mL (<450); Troponin I < 0.012 ng/mL (0.01-0.034)
[2024-09-23 12:00] VITALS: BP 131/59; PULSE 58; RESP 15; O2SAT 94
[2024-09-23 12:30] VITALS: BP 132/60; PULSE 56; RESP 12; O2SAT 94
[2024-09-23 12:49] LABS: Influenza A - CEPHEID Flu A NEGATIVE (NEGATIVE); Influenza B - CEPHEID Flu B NEGATIVE (NEGATIVE); Respiratory Syncytial Virus Negative (Negative)
[2024-09-23 12:50] LABS: COVID-19 CEPHEID 4-PLEX PCR Negative (Negative)
== END 2024-09-23 13:06 | disposition home or self-care (01) ==
PROVIDERS: Emergency Provider Emergency Medicine; PCP Internal Medicine
DX: R05.9 Cough, unspecified (principal)
CPT/HCPCS: 0241U; 71045; 80053; 82550; 83690; 83735; 83880; 84484; 85025; 85610; 85730; 93005; 99283; 99284